=== PATIENT | female | born 1970 | race Caucasian/White ===

== ENCOUNTER 2019-09-21 13:05 | Inpatient (IN) | payer MEDICARE, MEDICAID ==
[~2019-09-21] VITALS: Ht 175.3 cm; Wt 69.3 kg
[2019-09-21 14:47] VITALS: BP 147/73
[2019-09-21] MEDS ORDERED: GABA-529 PO (14:50)
[2019-09-21] MEDS ORDERED: ARIP15TA2 PO (14:50)
[2019-09-21] MEDS ORDERED: BUSP5TAB20 PO (14:50)
[2019-09-21] MEDS ORDERED: INFLUENZA VIRUS VACCINE QVS 2019-20 (3YR+)/PF 60 MCG/0.5 ML SYRINGE IM ONE (16:15)
[2019-09-21] MEDS ORDERED: ONDANSETRON HCL 4 MG TABLET PO PRN (16:15)
[2019-09-21 17:03] VITALS: BP 128/90
[2019-09-21] MEDS: QUEtiapine FUMARATE 100 MG TABLET PO PRN (20:32)
[2019-09-22 00:17] VITALS: BP 117/63
[2019-09-22 07:57] LABS: BASOPHILS % (AUTO) 1.2 % (0.0-2.0); EOSINOPHILS % (AUTO) 2.4 % (1.0-6.0); HEMOGLOBIN 15.4 g/dL (12.0-16.0); LYMPHOCYTES # (AUTO) 1.3 K/uL (1.0-4.8); MEAN CORPUSCULAR HEMOGLOBIN 31.7 pg (26.0-34.0); MEAN CORPUSCULAR HGB CONC 33.6 G/dL (31.0-37.0); MEAN CORPUSCULAR VOLUME 94 fL (80-100); MONOCYTES # (AUTO) 0.4 K/uL (0.1-1.0); MONOCYTES % (AUTO) 5.5 % (2.0-9.0); NEUTROPHILS # (AUTO) 4.7 K/uL (1.8-7.7); NEUTROPHILS % (AUTO) 70.9 % (40.0-70.0); PLATELET COUNT (AUTO) 268 K/uL (150-450); RED BLOOD CELL COUNT(AUTO) 4.87 MIL/uL (4.00-5.20); RED CELL DISTRIBUTION WIDTH 13.7 % (11.5-14.5)
[2019-09-22 08:12] VITALS: BP 133/79
[2019-09-22 08:49] LABS: HEMOGLOBIN A1C 5.6 % (4.5-6.2)
[2019-09-22 09:15] LABS: ALANINE AMINOTRANSFERASE 31 U/L (12-78); ALBUMIN 3.4 g/dL (3.4-5.0); ALKALINE PHOSPHATASE 63 U/L (46-116); ANION GAP 6 mmol/L (8-16); BILIRUBIN,TOTAL 0.4 mg/dL (0.1-1.0); CARBON DIOXIDE 29 mmol/L (22-29); CHLORIDE 106 mmol/L (98-107); CHOL/HDL RATIO 2.3 (3.9-5.7); CHOLESTEROL 153 mg/dL (131-200); CREATININE 0.69 mg/dL (0.60-1.30); FREE T4 (FREE THYROXINE) 0.75 ng/dL (0.76-1.46); GLOMERULAR FILTR. RATE CALC > 60 mL/min (>60); GLUCOSE,RANDOM 101 mg/dL (70-110); HDL CHOLESTEROL 67 mg/dL (40-60); LDL CHOL (CALC.) 75 mg/dL (0-130); POTASSIUM 4.9 mmol/L (3.5-5.1); SODIUM SERUM 141 mmol/L (136-145); THYROID STIMULATING HORMONE 0.57 uIU/mL (0.36-3.74); TRIGLYCERIDES 53 mg/dL (15-150); UREA NITROGEN, BLOOD 17 mg/dL (7-18)
[2019-09-22 09:29] LABS: ASPARTATE AMINOTRANSFERASE 12 U/L (15-37); TOTAL PROTEIN, SERUM 6.6 g/dL (6.4-8.2)
[2019-09-22] MEDS: GABAPENTIN 300 MG CAPSULE PO SCH ×2 (12:16→16:35)
[2019-09-22] MEDS: BusPIRone HCL 15 MG TABLET PO SCH ×2 (12:16→16:35)
[2019-09-22 16:10] VITALS: BP 132/84
[2019-09-22] MEDS: ZOLPIDEM TARTRATE 10 MG TABLET PO PRN (20:57)
[2019-09-23 01:31] VITALS: BP 139/83
[2019-09-23 08:17] VITALS: BP 108/72
[2019-09-23] MEDS: ARIPiprazole 15 MG TABLET PO SCH (08:25)
[2019-09-23] MEDS: GABAPENTIN 300 MG CAPSULE PO SCH ×3 (08:25→16:34)
[2019-09-23] MEDS: BusPIRone HCL 15 MG TABLET PO SCH ×3 (08:25→16:34)
[2019-09-23 16:06] VITALS: BP 108/70
[2019-09-24 08:08] VITALS: BP 115/69
[2019-09-24] MEDS: BusPIRone HCL 15 MG TABLET PO SCH ×3 (08:39→16:37)
[2019-09-24] MEDS: ARIPiprazole 15 MG TABLET PO SCH (08:39)
[2019-09-24] MEDS: GABAPENTIN 300 MG CAPSULE PO SCH ×3 (08:39→16:37)
[2019-09-24 16:10] VITALS: BP 118/77
[2019-09-25 06:39] VITALS: BP 136/73
[2019-09-25 08:15] VITALS: BP 113/70
[2019-09-25] MEDS: GABAPENTIN 300 MG CAPSULE PO SCH ×3 (08:31→16:33)
[2019-09-25] MEDS: BusPIRone HCL 15 MG TABLET PO SCH ×3 (08:31→16:33)
[2019-09-25] MEDS: ARIPiprazole 15 MG TABLET PO SCH (08:31)
[2019-09-25 16:41] VITALS: BP 112/72
[2019-09-26 00:32] VITALS: BP 138/78
[2019-09-26] MEDS: ZOLPIDEM TARTRATE 10 MG TABLET PO PRN ×2 (00:35→21:01)
[2019-09-26] MEDS: LORazepam 2 MG TABLET PO PRN (00:35)
[2019-09-26 08:14] VITALS: BP 115/64
[2019-09-26] MEDS: ARIPiprazole 15 MG TABLET PO SCH (08:40)
[2019-09-26] MEDS: BusPIRone HCL 15 MG TABLET PO SCH ×3 (08:41→16:40)
[2019-09-26] MEDS: GABAPENTIN 300 MG CAPSULE PO SCH ×3 (08:41→16:39)
[2019-09-26 16:21] VITALS: BP 110/76
[2019-09-27 06:38] VITALS: BP 122/75
[2019-09-27] MEDS: ARIPiprazole 15 MG TABLET PO SCH (08:36)
[2019-09-27] MEDS: BusPIRone HCL 15 MG TABLET PO SCH ×3 (08:36→16:35)
[2019-09-27] MEDS: GABAPENTIN 300 MG CAPSULE PO SCH ×3 (08:36→16:35)
[2019-09-27] MEDS: QUEtiapine FUMARATE 100 MG TABLET PO PRN (12:56)
[2019-09-27] MEDS: LORazepam 2 MG TABLET PO PRN (12:57)
[2019-09-27] MEDS ORDERED: LOPERAMIDE HCL 2 MG CAPSULE PO PRN (15:45)
[2019-09-27] MEDS ORDERED: ACETAMINOPHEN 325 MG TABLET PO PRN (15:45)
[2019-09-27] MEDS ORDERED: MAG HYDROX/AL HYDROX/SIMETH ES 30 ML SUSPENSION UDCUP PO PRN (15:45)
[2019-09-27] MEDS ORDERED: PROMETHAZINE HCL 25 MG TABLET PO PRN (15:45)
[2019-09-27] MEDS ORDERED: GuaiFENesin/D-METHORPHAN [SUGAR-FREE] 200-20MG/10 ML SYRUP UDCUP PO PRN (15:45)
[2019-09-27] MEDS ORDERED: MAGNESIUM HYDROXIDE SUSPENSION 30 ML UDCUP PO PRN (15:45)
[2019-09-27] MEDS ORDERED: TUBERCULIN, PURIFIED PROTEIN DERIVATIVE 5 TU/0.1 ML SYRINGE ID ONE (15:45)
[2019-09-27] MEDS ORDERED: HydrOXYzine PAMOATE 50 MG CAPSULE PO PRN (15:45)
[2019-09-27 16:19] VITALS: BP 108/65
[2019-09-27] MEDS: THIAMINE HCL 100 MG TABLET PO SCH (16:35)
[2019-09-27] MEDS ORDERED: GABA-531 PO (18:53)
[2019-09-28 08:27] VITALS: BP 109/66
[2019-09-28] MEDS: BusPIRone HCL 15 MG TABLET PO SCH ×3 (08:53→16:31)
[2019-09-28] MEDS: MULTIVITAMINS WITH MINERALS, THERAPEUTIC TABLET PO SCH (08:53)
[2019-09-28] MEDS: FOLIC ACID 1 MG TABLET PO SCH (08:53)
[2019-09-28] MEDS: ARIPiprazole 15 MG TABLET PO SCH (08:53)
[2019-09-28] MEDS: GABAPENTIN 300 MG CAPSULE PO SCH ×3 (08:53→16:31)
[2019-09-28] MEDS: THIAMINE HCL 100 MG TABLET PO SCH ×2 (08:55→16:31)
[2019-09-28] MEDS: LORazepam 2 MG TABLET PO PRN (09:49)
[2019-09-28 16:59] VITALS: BP 108/77
[2019-09-28] MEDS ORDERED: OLANZapine 5 MG RAPDIS TABLET PO PRN (18:00)
[2019-09-28] MEDS ORDERED: OLANZapine 5 MG RAPDIS TABLET PO SCH (21:00)
[2019-09-29 01:51] VITALS: BP 113/66
[2019-09-29 08:45] VITALS: BP 109/61
[2019-09-29] MEDS: FOLIC ACID 1 MG TABLET PO SCH (08:56)
[2019-09-29] MEDS: MULTIVITAMINS WITH MINERALS, THERAPEUTIC TABLET PO SCH (08:56)
[2019-09-29] MEDS: THIAMINE HCL 100 MG TABLET PO SCH ×2 (08:56→16:40)
[2019-09-29] MEDS: BusPIRone HCL 15 MG TABLET PO SCH ×3 (08:57→16:39)
[2019-09-29 16:25] VITALS: BP 115/74
[2019-09-29] MEDS: OLANZapine 10 MG RAPDIS TABLET PO SCH (20:36)
[2019-09-30 00:36] VITALS: BP 112/65
[2019-09-30 08:18] VITALS: BP 138/77
[2019-09-30] MEDS: FOLIC ACID 1 MG TABLET PO SCH (08:43)
[2019-09-30] MEDS: BusPIRone HCL 15 MG TABLET PO SCH ×2 (08:43→13:13)
[2019-09-30] MEDS: THIAMINE HCL 100 MG TABLET PO SCH ×2 (08:43→16:13)
[2019-09-30] MEDS: MULTIVITAMINS WITH MINERALS, THERAPEUTIC TABLET PO SCH (08:43)
[2019-09-30] MEDS: BusPIRone HCL 10 MG TABLET PO SCH (16:13)
[2019-09-30 17:13] VITALS: BP 121/71
[2019-09-30] MEDS: OLANZapine 10 MG RAPDIS TABLET PO SCH (20:34)
[2019-10-01 00:44] VITALS: BP 123/64
[2019-10-01] MEDS: MULTIVITAMINS WITH MINERALS, THERAPEUTIC TABLET PO SCH (08:16)
[2019-10-01] MEDS: BusPIRone HCL 10 MG TABLET PO SCH ×3 (08:16→18:11)
[2019-10-01] MEDS: THIAMINE HCL 100 MG TABLET PO SCH ×2 (08:16→18:11)
[2019-10-01] MEDS: FOLIC ACID 1 MG TABLET PO SCH (08:16)
[2019-10-01 08:22] VITALS: BP 104/75
[2019-10-01 16:20] VITALS: BP 112/79
[2019-10-01] MEDS: OLANZapine 10 MG RAPDIS TABLET PO SCH (21:49)
[2019-10-02 06:52] VITALS: BP 117/70
[2019-10-02 08:00] VITALS: BP 112/84
[2019-10-02] MEDS: BusPIRone HCL 10 MG TABLET PO SCH ×3 (10:04→17:25)
[2019-10-02] MEDS: FOLIC ACID 1 MG TABLET PO SCH (10:04)
[2019-10-02] MEDS: THIAMINE HCL 100 MG TABLET PO SCH ×2 (10:04→17:25)
[2019-10-02] MEDS: MULTIVITAMINS WITH MINERALS, THERAPEUTIC TABLET PO SCH (10:04)
[2019-10-02 16:18] VITALS: BP 115/66
[2019-10-02] MEDS: OLANZapine 10 MG RAPDIS TABLET PO SCH (21:39)
[2019-10-03 01:41] VITALS: BP 111/64
[2019-10-03 09:00] VITALS: BP 128/69
[2019-10-03] MEDS: MULTIVITAMINS WITH MINERALS, THERAPEUTIC TABLET PO SCH (09:20)
[2019-10-03] MEDS: THIAMINE HCL 100 MG TABLET PO SCH ×2 (09:20→16:42)
[2019-10-03] MEDS: FOLIC ACID 1 MG TABLET PO SCH (09:20)
[2019-10-03] MEDS: BusPIRone HCL 10 MG TABLET PO SCH ×3 (09:20→16:42)
[2019-10-03 16:10] VITALS: BP 114/76
[2019-10-03] MEDS: OLANZapine 10 MG RAPDIS TABLET PO SCH (20:36)
[2019-10-03] MEDS: ZOLPIDEM TARTRATE 10 MG TABLET PO PRN (23:02)
[2019-10-04 05:11] VITALS: BP 104/75
[2019-10-04 08:35] VITALS: BP 108/76
[2019-10-04] MEDS: BusPIRone HCL 10 MG TABLET PO SCH ×3 (09:00→16:15)
[2019-10-04] MEDS: MULTIVITAMINS WITH MINERALS, THERAPEUTIC TABLET PO SCH (09:52)
[2019-10-04] MEDS: THIAMINE HCL 100 MG TABLET PO SCH ×2 (09:52→16:15)
[2019-10-04] MEDS: FOLIC ACID 1 MG TABLET PO SCH (09:52)
[2019-10-04 16:24] VITALS: BP 134/75
[2019-10-04] MEDS: OLANZapine 10 MG RAPDIS TABLET PO SCH (20:05)
[2019-10-04] MEDS: ZOLPIDEM TARTRATE 10 MG TABLET PO PRN (21:06)
[2019-10-05 00:50] VITALS: BP 124/97
[2019-10-05] MEDS: FOLIC ACID 1 MG TABLET PO SCH (08:24)
[2019-10-05] MEDS: MULTIVITAMINS WITH MINERALS, THERAPEUTIC TABLET PO SCH (08:24)
[2019-10-05] MEDS: THIAMINE HCL 100 MG TABLET PO SCH ×2 (08:24→16:34)
[2019-10-05] MEDS: BusPIRone HCL 10 MG TABLET PO SCH ×3 (08:25→16:34)
[2019-10-05 08:42] VITALS: BP 118/66
[2019-10-05 16:17] VITALS: BP 113/65
[2019-10-05] MEDS: OLANZapine 10 MG RAPDIS TABLET PO SCH (20:35)
[2019-10-05] MEDS: ZOLPIDEM TARTRATE 10 MG TABLET PO PRN (23:47)
[2019-10-06] VITALS: BP 106/66
[2019-10-06] MEDS: THIAMINE HCL 100 MG TABLET PO SCH (08:34)
[2019-10-06] MEDS: BusPIRone HCL 10 MG TABLET PO SCH ×2 (08:34→13:08)
[2019-10-06] MEDS: MULTIVITAMINS WITH MINERALS, THERAPEUTIC TABLET PO SCH (08:35)
[2019-10-06] MEDS: FOLIC ACID 1 MG TABLET PO SCH (08:35)
[2019-10-06 08:55] VITALS: BP 119/74
[2019-10-06] MEDS ORDERED: OLAN10TA6 PO (12:48)
[2019-10-06] MEDS ORDERED: BUSP10TA23 PO (12:48)
== END 2019-10-06 15:00 | disposition home or self-care (01) | DRG 885 ==
LOC: B2X 15:14
PROVIDERS: ADMIT Psychiatry & Neurology Psychiatry; ATTEND Psychiatry & Neurology Psychiatry
DX: F25.0 Schizoaffective disorder, bipolar type (principal); R45.851 Suicidal ideations; E44.1 Mild protein-calorie malnutrition; K21.9 Gastro-esophageal reflux disease without esophagitis; F19.90 Other psychoactive substance use, unspecified, uncomplicated; F10.10 Alcohol abuse, uncomplicated; Z79.899 Other long term (current) drug therapy; Z59.0 Homelessness; Z91.5 Personal history of self-harm; Z68.22 Body mass index [BMI] 22.0-22.9, adult
CPT/HCPCS: 83036; 84439; 84443; 87081